=== PATIENT | male | born 1975 | race Caucasian/White ===

== ENCOUNTER 2017-04-15 03:31 | Emergency (ER) | payer OTHER ==
[~2017-04-15] VITALS: Ht 180.3 cm; Wt 81.0 kg
[~2017-04-15 03:31] MED LIST: HYDR-3702 PO; SMTR6KT.5 SQ; SUMA6KIT
--- OUTSIDE RECORDS SUMMARY | 2017-04-15 03:35 | XMS REPORT | Continuity of Care Document ---
Author Author [facility] Organization [facility] Address Unknown Phone Unavailable Care Team Providers Care Machine Spring Former Name Role Phone Ramiro Thayer PCP [phone] Insurance Providers Payer Name Policy Number Subscriber Name Relationship [employer] [id number] Andreia Guerrero 01 Chief Complaint and Reason for Visit Chief Complaint Injury Reason for Visit [id number] Knee injury Internal derangement of knee Problems Medical Problems Problem Onset Date Status Cluster headache syndrome 11/03/2013 Resolved Knee effusion, left Unknown Active Knee injury Unknown Active Internal derangement of knee Unknown Active Medications Medication Dose Route Sig Days/Qty Instructions Order Date Discontinued Date Status Sumatriptan Succinate 1 11/03/13 Active Sumatriptan Succinate 6 Mg SQ TWICE A DAY 1 Qty 11/03/13 Active Hydrocodone Bit/Acetaminophen 1 Each ORAL EVERY 6 HOURS PRN PAIN 12 Qty 03/26/15 Active Social History No social history. Hospital Discharge Instructions No hospital discharge instructions. Plan of Care Discharge Date 03/26/15 11:27pm Disposition 01 HOME OR SELF-CARE Condition at Discharge Stable Instructions/Education Provided Knee Sprain (ED) Prescriptions See Medications Section Referrals Ramiro Thayer Additional Instructions/Education Rest, Ice, elevation. Wear immobilizer. Use crutches. Follow up with primary care doctor. Return to ER as needed. Some of your test results may not be complete prior to your leaving the Emergency Department. The Emergency Department is not authorized to give test results over the phone. Please contact the doctor's office listed in this packet of information for your final results. Follow up with your primary care physician or return to the Emergency Department for worsening or worrisome symptoms. * Emergency Department phone number: [phone], x [phone]* MEDICAL RECORD If you need copies of your X-rays, call [phone]. If you need copies of your medical record, including lab results, a signed authorization for release of records will be required. A telephone call for release of Health Information is not allowed. BILLING Billing can sometimes be confusing and frustrating. To help avoid confusion in the future, please take a moment to acquaint yourself with the billing parties for services. [facility] Emergency Room Services [facility] Physician Services [facility] Patients will receive bills for services from the appropriate provider. If you have any questions about your [facility] bill, our staff will be happy to assist you. Please call [phone], and ask for the billing department. THANK YOU for choosing [facility] as your emergency care provider! Functional Status No functional status results. Allergies, Adverse Reactions, Alerts Allergen Type Severity Reaction Status Last Updated No Known Drug Allergies Active 11/03/13 Immunizations No immunization records. Vital Signs Acute Vital Signs Vital Response Date/Time Temperature (Fahrenheit) 98.5 Pulse 73 bpm Respirations 20 Height 6 ft 0 in Weight 139 lb Body Mass Index 18.0 kg/m^2 Results No known relevant diagnostic tests, laboratory data and/or discharge summary. Procedures No known history of procedures. Encounters Encounter Location Date/Time Departed Emergency Room [facility] 03/26/15 10:19pm Recent Diagnosis
--- OUTSIDE RECORDS SUMMARY | 2017-04-15 03:37 | XMS REPORT | Continuity of Care Document ---
Author Author [facility] Organization [facility] Address Unknown Phone Unavailable Care Team Providers Care Addictions Counselor Name Role Phone Ramiro Thayer PCP [phone] Insurance Providers Payer Name Policy Number Subscriber Name Relationship [employer] [id number] Andreia Guerrero 01 Chief Complaint and Reason for Visit Chief Complaint Injury Reason for Visit [id number] Knee injury Internal derangement of knee Problems [...] worrisome symptoms. * Emergency Department phone number: [phone], x [phone]* MEDICAL RECORD If you need copies of your X-rays, call [phone] x [phone]. If you need copies of [...] services. [facility] Emergency Room Services [facility] Physician Services [facility] X[facility] [place] Patients will receive bills for services from the appropriate provider. If you have any questions about your [facility] bill, our staff will be happy to assist you. Please call [phone], and ask for the billing department. THANK YOU for choosing [facility] as your emergency care provider! Functional Status [...] Encounters Encounter Location Date/Time Departed Emergency Room [facility] 03/26/15 10:19pm Recent Diagnosis
[2017-04-15] MEDS ORDERED: SUMAtriptan 6 MG/0.5 ML (IMITREX) INJ SC ONE (04:05)
[2017-04-15 05:22] VITALS: BP 135/70
== END 2017-04-15 04:45 | disposition home or self-care (01) ==
LOC: ED 03:33
DX: G44.019 Episodic cluster headache, not intractable (principal)
CPT/HCPCS: 99282; J3030